=== PATIENT | male | born 1940 | race Caucasian/White ===

== ENCOUNTER 2019-09-01 00:07 | Inpatient (IN) | payer MEDICARE, SELFPAY ==
[2019-09-01] VITALS (8 sets, daily range): BP systolic 90–133; BP diastolic 49–73; PULSE 68–91; RESP 18–20; TEMP 36.4–37.4; O2SAT 95–100; BMI 21.2
--- NOTE | ~2019-09-01 | CT_ITS ---
EXAMINATION: CT abdomen pelvis wo con EXAM DATE: 09/01/2019 11:46 INDICATION: History of diverticulitis. Persistent rectal bleeding. Hematochezia. TECHNIQUE: Spiral CT of the abdomen and pelvis was performed without contrast. Axial, coronal and s agittal images were reviewed. The dose-length product (DLP) for this examination was 224.61 mGy-cm. The exposure was tailored according to patient size (auto mA exposure control), and iterative recons truction (ASIR) was used as additional dose reduction technique. Correlation is made to PET/CT 2016. FINDINGS: There is left adrenal hyperplasia. The spleen, right adrenal gland, pancreas are unremarkab le. There are cholecystectomy clips. Small left nephrolithiasis versus vascular calcification. Ther e is a left renal cyst measuring 4.8 cm. No hydronephrosis or ureteral stones. There is mild prostato megaly. The bladder is severely distended with large diverticulum at the dome measuring up to about 5 cm. There is no retroperitoneal or pelvic lymphadenopathy. There is extensive scattered arterial sclerotic disease. There is small left inguinal fat-containing hernia. The appendix is normal. The stomach and small bowel are unremarkable. There is moderate amount of c olonic stool. There is moderate sigmoid colonic diverticulosis. There is no adjacent inflammatory ch solo to suggest diverticulitis. No free intraperitoneal gas. Heart is normal in size. There is tra ce pericardial effusion. There is moderate emphysema. There are no osteoblastic or osteolytic lesio ns identified. IMPRESSION: 1. No acute intra-abdominal findings. 2. Moderate sigmoid diverticulosis. 3. Left adrenal hyperplasia. 4. Moderate emphysema. 5. Severely distended bladder with large diverticulum. 6. Small left inguinal hernia. 7. Mild prostatomegaly. Reviewed, dictated and finalized at location [facility]
--- NOTE | 2019-09-01 00:27 | ED.GIBLEED ---
HPI - GI Bleed General Chief complaint: GI Bleed Stated complaint: GI BLEED Time Seen by Provider: 09/01/19 00:25 Source: patient and RN notes reviewed Mode of arrival: ambulatory Limitations: no limitations History of Present Illness HPI Narrative: Pt is an 78 y/o male presenting to the ED c/o hematochezia. Pt reports he has had 4 episodes of bright red blood from his rectum since 2129 this evening. Pt notes he is currently taking Plavix but is unsure as to why. Pt denies ABD pain. Pt states he has had a Colonoscopy by Dr. Vergara previously. Pt denies SOB or fever. Onset (ago): hour(s) (3) Context: anticoagulant use (Taking Plavix) Associated symptoms: denies other symptoms Related Data Home Medications Medication Instructions Recorded Confirmed amlodipine 5 mg tablet 5 mg PO DAILY 06/05/19 atorvastatin 20 mg tablet 20 mg PO DAILY 06/05/19 clopidogrel 75 mg tablet 75 mg PO DAILY 06/05/19 cyanocobalamin (vitamin B-12) 10,000 mcg PO MONTHLY cap 06/05/19 5,000 mcg capsule doxazosin 8 mg tablet 8 mg PO DAILY 06/05/19 ferrous sulfate 325 mg (65 mg 325 mg PO BID 06/05/19 iron) tablet metformin 500 mg tablet 500 mg PO DAILY 06/05/19 pantoprazole 40 mg tablet,delayed 40 mg PO BID tablet 06/05/19 release blood sugar diagnostic #10 each 08/09/19 blood sugar diagnostic #10 each 08/09/19 cyanocobalamin (vitamin B-12) See Rx Instructions .ROUTE .COMPLEX 08/09/19 1,000 mcg/mL injection kit famotidine 20 mg tablet 20 mg PO BID tablet 08/09/19 lancets 30 gauge #25 each 08/09/19 Allergies Allergy/AdvReac Type Severity Reaction Status Date / Time losartan Allergy Unknown RASH Verified 09/01/19 00:13 Review of Systems Review of Systems: All systems reviewed & are unremarkable except as noted in HPI and below Constitutional: Constitutional: Denies fever(s) Respiratory: Respiratory: Denies dyspnea Gastrointestinal: Gastrointestinal: Denies abdominal pain and Reports hematochezia PMFSH Past Medical History Medical History B12 deficiency Carotid stenosis, right CKD (chronic kidney disease) stage 3, GFR 30-59 ml/min COPD (chronic obstructive pulmonary disease) BRIDGES (dyspnea on exertion) Essential hypertension GERD without esophagitis Hyperkalemia Hyperlipidemia Hypertension Malignant neoplasm of upper lobe of right lung Mixed hyperlipidemia NSTEMI (non-ST elevated myocardial infarction) Peripheral vascular disease 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 Tobacco abuse disorder Type 2 diabetes mellitus without complication, 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 Surgical History Surgical History H/O hernia repair Family History Family History Father Family history of heart disease in male family member before age 55, Onset Age: 76 Hypertension Cerebrovascular accident Mother Family history of diabetes mellitus in first degree relative Other Diabetes mellitus Social History Social History Smoking status: Current every day smoker Alcohol intake: never Gender identity (if verbalized by the patient): Male Exam Narrative: Exam Narrative: APPEARANCE: No acute distress, nontoxic, resting in bed EYES: EOMI HEENT: Normocephalic, atraumatic, OMM RESPIRATORY: No respiratory distress Clear to auscultation bilaterally with no rhonchi wheezing or rales. CARDIOVASCULAR: Regular rate and rhythm without murmurs rubs or gallops. ABDOMINAL: Soft, nontender, nondistended, no rebound or guarding Rectal: No hemorrhoids or fissures, bright red blood present that is Hemoccult positive MUSCULOSKELETAl: Moves all extremities. No clubbing, cyanosis or edema. NEURO: Awake and alert. Following commands, speech normal, no focal deficits SKIN:: Warm, dry. No rashes lesions or abrasions PSYCHIATRIC: Normal affect/moo
[2019-09-01 00:39] LABS: Basophils Absolute Auto 0.1 K/mm3 (0.0-0.1); Basophils Percent Auto 0.8 % (0.2-1.2); Eosinophils Absolute Auto 0.2 K/mm3 (0-0.3); Eosinophils Percent Auto 2.1 % (0-4.4); Hematocrit 45.2 % (42.0-52.0); Hemoglobin 14.8 g/dL (14.0-18.0); Immature Granulocyte Absolute 0.02 K/mm3 (0.00-0.031); Immature Granulocyte Percent A 0.3 % (0-0.5); Lymphocytes Absolute Auto 1.87 K/mm3 (0.9-3.2); Lymphocytes Percent Auto 24.4 % (18.3-44.2); Mean Corpuscular HGB Conc 32.7 g/dl (32-36); Mean Corpuscular Hemoglobin 32.4 pg (26-34); Mean Corpuscular Volume 98.9 fl (80-100); Mean Platelet Volume 10.4 fl (7.4-10.4); Monocytes Absolute Auto 0.8 K/mm3 (0.1-0.6); Monocytes Percent Auto 10.7 % (2.6-8.5); Neutrophils Absolute Auto 4.7 K/mm3 (1.3-6.7); Neutrophils Percent Auto 61.7 % (45.5-73.1); Platelet Count Result 165 k/mm3 (150-375); Red Blood Count 4.57 M/mm3 (4.6-6.20); Red Cell Distribution Width 13.2 % (11.5-14.5); White Blood Count 7.7 K/mm3 (4.5-10.0)
[2019-09-01] MEDS: LACTATED RINGERS 1,000 ML 999 ML IV CONT (00:44)
[2019-09-01 00:49] LABS: INR 0.9; Prothrombin Time 12.3 Seconds (11.1-14.7)
[2019-09-01 00:50] LABS: Alanine Aminotransferase 19 U/L (4-50); Albumin Level 4.2 g/dL (3.5-5.1); Alkaline Phosphatase 109 U/L (38-126); Aspartate Amino Transferase 26 U/L (17-59); Bilirubin,Total 0.4 mg/dL (0.2-1.3); Blood Urea Nitrogen 37 mg/dL (9-20); Calcium 8.7 mg/dL (8.4-10.2); Carbon Dioxide 23 mmol/L (22-30); Chloride 101 mmol/L (98-107); Estimated Glomerular Filt Rate 39; Glucose 139 mg/dL (75-110); Partial Thromboplastin Time 31.4 SECONDS (22.3-36.8); Sodium 137 mmol/L (137-145)
[2019-09-01 00:51] LABS: Lactic Acid Reflex 1.5 mmol/L (0.7-2.1)
--- NOTE | 2019-09-01 04:15 | ADMGEN ---
This patient, Isaias Pedro, was admitted to 3 [facility] Surg Room 317-01. Patient/family oriented to hospital policies and general routines including ID bracelet, bed and alarms, visiting hours, pain management, procedures, bathroom and other care routines, personal items, smoking policy, room service/diet, and visiting hours. Valuables list has been completed. Information on how to activate the Rapid Response Team has been discussed. Patient/Family are encouraged to report perceived risks to care and to ask questions if they do not understand what they are told or what they should do.
[2019-09-01] MEDS: LACTATED RINGERS 1,000 ML 100 ML IV CONT ×2 (04:41→16:07)
[2019-09-01 06:22] LABS: Hematocrit 39.1 % (42.0-52.0); Hemoglobin 13.2 g/dL (14.0-18.0)
--- NOTE | 2019-09-01 10:30 | PM.IMHP ---
H&P: HPI History of Present Illness Chief complaint: GI BLEED Narrative: Isaias Pedro is a 78 year old male who is on Plavix who presented emergency room for bright red blood coating the toilet starting at 9:00 p.m. last night. He said this was not associated with diarrhea or abdominal cramping. He said he had further episodes at 10:30 a.m., midnight and then decided to come in. He has had about 6 since he has been here but states his last bowel movement was much better and have less blood. He cannot tell me why he is on Plavix or who prescribed a for a but it sounds like he might of had a carotid endarterectomy in the past. Patient denies stomach pain, nausea, vomiting, lightheadedness, dizziness, chest pain, shortness of breath or dyspnea on exertion. He said his last colonoscopy was about 2-3 years ago and was reportedly clean. He has no history of diverticulitis or diverticulosis and does have a history of hemorrhoids that usually give him no problems. Has not had any flu-like symptoms in this last week. He says he is a diabetic but checks his blood sugar once every couple weeks and it is around 108. He takes metformin. He does not know his last A1c. He said he is scheduled to have a echo in the next 3 weeks by his tank house operator Dr. wu. Review of Systems Review of Systems: All systems reviewed & are unremarkable except as noted in HPI and below PMFSH Past Medical History Medical History (Updated 09/01/19 @ 10:43 by Yaz Flores PA-C) Abdominal bruit U/S 2010 showed no aneurysm B12 deficiency Carotid stenosis, right CKD (chronic kidney disease) stage 3, GFR 30-59 ml/min COPD (chronic obstructive pulmonary disease) BRIDGES (dyspnea on exertion) Essential hypertension GERD without esophagitis Hyperkalemia Hyperlipidemia Hypertension Malignant neoplasm of upper lobe of right lung Mixed hyperlipidemia NSTEMI (non-ST elevated myocardial infarction) Peripheral vascular disease 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 Tobacco abuse disorder Surgical History Surgical History (Updated 09/01/19 @ 10:45 by Yaz Flores PA-C) H/O hernia repair History of cataract surgery History of cholecystectomy History of colonoscopy History of renal stent History of surgical removal of squamous cell carcinoma of skin of left roman catholic Family History Family History Father Family history of heart disease in male family member before age 55, Onset Age: 76 Hypertension Cerebrovascular accident Mother Family history of diabetes mellitus in first degree relative Other Diabetes mellitus Social History Social History (Updated 09/01/19 @ 10:45 by Yaz Flores PA-C) Social History: Patient continues to smoke a pack per day. He does not do drugs or smoke marijuana. He does not drink alcohol. 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 Smoking packs per day: 1 Smoking cigarettes per day: 20.0 Years smoked: 65 Smoking pack-years: 65.00 Smoking status: Current every day smoker Tobacco type: cigarettes Alcohol intake: never Substance use: never Gender identity (if verbalized by the patient): Male Spiritual care concerns: No Agree to blood products: Yes Meds Home Medications and Allergies Home Medications Medication Instructions Recorded Confirmed Type amlodipine 5 mg tablet 5 mg PO DAILY 06/05/19 09/01/19 History atorvastatin 20 mg tablet 20 mg PO DAILY 06/05/19 09/01/19 History clopidogrel 75 mg tablet 75 mg PO DAILY 06/05/19 09/01/19 History doxazosin 8 mg tablet 8 mg PO DAILY 06/05/19 09/01/19 History metformin 500 mg tablet 500 mg PO DAILY 06/05/19 09/01/19 History albuterol sulfate 90 mcg/actuation 1 inhalation INHALATION Q4H PRN #8 06/07/19 09/01/19 Rx aerosol inhaler gm blood sugar diagnostic #10 each 08/09/19 09/01/19 History blood sugar diagnostic #10 each
[2019-09-01] MEDS: DOXAZOSIN MESYLATE 4 MG TABLET 8 MG PO (12:15)
[2019-09-01] MEDS: FAMOTIDINE 20 MG TABLET PO (12:17)
[2019-09-01] MEDS: ATORVASTATIN 20 MG TABLET PO (12:17)
--- NOTE | 2019-09-01 12:27 | WPDGICN ---
Assessment and Plan Additional Plan This is an 78-year-old white male patient I am asked to see for GI bleeding. Patient seen at the request of SOSA Flores. Patient followed by Dr. Vidal in the outpatient setting. Patient states he was in usual state of health until about 9:00 p.m. last evening. At that time he began to pass dark maroonish blood per rectum. He states that he had episodes of bleeding approximately every hour since that time. He denies any abdominal pain. He states he has passed only minimal amount of stool. Previously has had regular bowel movements. Perhaps only a mild tendency towards constipation. He denies any abdominal or rectal pain. Past medical history is significant for gastric ulcer 2 years ago. He has a history of colonoscopy 3 years ago. Patient has been treated for chronic kidney disease, COPD, GE reflux disease. History of right upper lobe lung malignancy. Atherosclerotic heart disease. he has had at the squamous cell carcinoma in the left shoulder. Previous surgery includes cholecystectomy. He has had a hernia repair. History of a renal stent. Skin carcinoma removal. And cataract surgery. Medications at home include Plavix. Amlodipine. Atorvastatin. B12. Doxazosin. Famotidine. Metformin. Metoprolol. He has an allergy to losartan. Family history is noncontributory Review of systems noncontributory. Physical exam reveals patient to be alert. Vital signs stable. HEENT exam unremarkable. He is anicteric. Lungs are clear to auscultation and percussion. Heart is without murmur or extra sounds. Abdominal exam bowel sounds are present soft nontender with no hepatosplenomegaly. Digital external rectal exam unremarkable. Laboratory findings reveal hemoglobin 13.2. Hematocrit 39.1 after overnight observation. These appear stable. Coagulation profile stable. Impression 1. Lower GI bleeding. Stable hemoglobin suggests this may represent rectal blood loss. 2. Atherosclerotic heart disease. He has a history of heart stent. Plavix will be held.. 3. COPD 4. ckd 6. dm Plan plan is for colonoscopy tomorrow after preparation today. Continue to monitor hemoglobin closely. Clear liquid diet in anticipation of colon preparation. GI Consult Note Consult date/time: 09/01/19 12:27 HPI: Isaias Pedro is a 78 year old male [facility] Past Medical History Medical History (Updated 09/01/19 @ 10:43 by Yaz Flores PA-C) Abdominal bruit U/S 2010 showed no aneurysm B12 deficiency Carotid stenosis, right CKD (chronic kidney disease) stage 3, GFR 30-59 ml/min COPD (chronic obstructive pulmonary disease) BRIDGES (dyspnea on exertion) Essential hypertension GERD without esophagitis Hyperkalemia Hyperlipidemia Hypertension Malignant neoplasm of upper lobe of right lung Mixed hyperlipidemia NSTEMI (non-ST elevated myocardial infarction) Peripheral vascular disease 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 Tobacco abuse disorder Surgical History Surgical History (Updated 09/01/19 @ 10:45 by Yaz Flores PA-C) H/O hernia repair History of cataract surgery History of cholecystectomy History of colonoscopy History of renal stent History of surgical removal of squamous cell carcinoma of skin of left voodoo Family History Family History Father Family history of heart disease in male family member before age 55, Onset Age: 76 Hypertension Cerebrovascular accident Mother Family history of diabetes mellitus in first degree relative Other Diabetes mellitus Social History Social History (Updated 09/01/19 @ 10:45 by Yaz Flores PA-C) Social History: Patient continues to smoke a pack per day. He does not do drugs or smoke marijuana. He does not drink alcohol. 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
[2019-09-01 13:29] LABS: Glucose Point of Care 107 (65-105)
[2019-09-01 13:31] LABS: Hematocrit 36.1 % (42.0-52.0)
[2019-09-01] MEDS: PEG (High)/E-LYTE SOLN 4,000 ML BTL 4000 ML PO (14:27)
[2019-09-01 17:09] LABS: Glucose Point of Care 77 (65-105)
[2019-09-01] MEDS: DEXTROSE 5%/LACTATED RINGERS 1,000 ML 100 ML IV CONT (17:44)
[2019-09-01 18:47] LABS: Hematocrit 36.9 % (42.0-52.0); Hemoglobin 12.3 g/dL (14.0-18.0)
[2019-09-01] MEDS: METOPROLOL TARTRATE 25 MG TABLET 75 MG PO (22:26)
--- NOTE | 2019-09-01 22:34 | PC.NURSE ---
Bowel Prep completed.
[2019-09-01 22:41] LABS: Glucose Point of Care 104 (65-105)
[2019-09-02] VITALS (7 sets, daily range): BP systolic 85–147; BP diastolic 49–64; PULSE 61–79; RESP 14–19; TEMP 36.6–37.3; O2SAT 93–100
[2019-09-02] MEDS: DEXTROSE 5%/LACTATED RINGERS 1,000 ML 100 ML IV CONT (03:37)
[2019-09-02 06:23] LABS: Hematocrit 34.1 % (42.0-52.0); Hemoglobin 11.5 g/dL (14.0-18.0)
--- NOTE | 2019-09-02 07:24 | WPDURCON ---
Assessment and Plan Assessment and plan (1) BPH loc w urin obs/LUTS: Code(s): N40.1 - Benign prostatic hyperplasia with lower urinary tract symptoms Status: Acute (2) Incomplete bladder emptying: Code(s): R33.9 - Retention of urine, unspecified Status: Acute Assessment and Plan: Incidental finding of incomplete bladder emptying in pt. with minimal voiding symptoms. Suspect this is a longstanding/ongoing problem. In absence of recurrent UTI, hematuria, jeannine urinary retention and worsening renal function surgical intervention not absolutely indicated. Will add Finasteride to Doxazosin 8mg. F/U with us 3-4 weeks. Urology Consult Note HPI Date Seen: 09/02/19 Requesting Physician: Yaz Flores PA-C Primary Care Provider: Mayur Vidal MD Consult Narrative Narrative: Isaias Pedro is a 78 year old male admitted with GI bleed. During evaluation CT-abd/pelvis revealed prostatic enlargement and incomplete bladder emptying. Pt. reports known history of BPH and has been on Doxazosin 8mg daily for years. He reports moderate slowing of stream and nocturia 3x/night. His voiding pattern is not troublesome to him and he denies history of recurrent UTI or hematuria. Review of Systems Cardiovascular: Cardiovascular: Denies chest pain, Denies lightheadedness, Denies palpitations and Denies dyspnea Respiratory: Respiratory: Denies dyspnea Gastrointestinal: Gastrointestinal: Denies diarrhea, Denies nausea and Denies vomiting Genitourinary: Genitourinary: Denies hematuria and Denies dysuria Endocrine: Endocrine: Denies palpitations [facility] Past Medical History Medical History (Updated 09/02/19 @ 07:29 by Felix Mcdermott MD) Abdominal bruit U/S 2010 showed no aneurysm B12 deficiency Carotid stenosis, right CKD (chronic kidney disease) stage 3, GFR 30-59 ml/min COPD (chronic obstructive pulmonary disease) BRIDGES (dyspnea on exertion) Essential hypertension GERD without esophagitis Hyperkalemia Hyperlipidemia Hypertension Malignant neoplasm of upper lobe of right lung Mixed hyperlipidemia NSTEMI (non-ST elevated myocardial infarction) Peripheral vascular disease 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 Tobacco abuse disorder Surgical History Surgical History (Updated 09/01/19 @ 10:45 by Yaz Flores PA-C) H/O hernia repair History of cataract surgery History of cholecystectomy History of colonoscopy History of renal stent History of surgical removal of squamous cell carcinoma of skin of left faith Family History Family History Father Family history of heart disease in male family member before age 55, Onset Age: 76 Hypertension Cerebrovascular accident Mother Family history of diabetes mellitus in first degree relative Other Diabetes mellitus Social History Social History (Updated 09/01/19 @ 10:45 by Yaz Flores PA-C) Social History: Patient continues to smoke a pack per day. He does not do drugs or smoke marijuana. He does not drink alcohol. 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 Smoking packs per day: 1 Smoking cigarettes per day: 20.0 Years smoked: 65 Smoking pack-years: 65.00 Smoking status: Current every day smoker Tobacco type: cigarettes Alcohol intake: never Substance use: never Gender identity (if verbalized by the patient): Male Spiritual care concerns: No Agree to blood products: Yes Meds Home Medications and Allergies Home Medications Medication Instructions Recorded Confirmed Type amlodipine 5 mg tablet 5 mg PO DAILY 06/05/19 09/01/19 History atorvastatin 20 mg tablet 20 mg PO DAILY 06/05/19 09/01/19 History clopidogrel 75 mg tablet 75 mg PO DAILY 06/05/19 09/01/19 History doxazosin 8 mg tablet 8 mg PO DAILY 06/05/19 09/01/19 History metformin 500 mg tablet 500 mg PO DAILY
[2019-09-02 07:52] LABS: Glucose Point of Care 111 (65-105)
--- NOTE | 2019-09-02 10:10 | PC.NURSE ---
To GI Lab per harshil.
[2019-09-02 10:20] LABS: Glucose Point of Care 88 (65-105)
[2019-09-02] MEDS: LACTATED RINGERS 1,000 ML 150 ML IV CONT (10:22)
--- NOTE | 2019-09-02 10:59 | WPDANESEPPF ---
Anes - Initial Pre Proc Eval Procedure: Operation Date: 09/02/19 11:30 Proposed Procedures p Colonoscopy - Jose Vergara MD Date/Time: 09/02/19 10:59 Surgeon: Yaz Flores PA-C Pre Op Diagnosis: GI BLEED Patient Data Age: 78 Gender: M Height: 5 ft 6 in Weight: 59.8 kg Last Vital Signs Temp 97.9 F 09/02/19 10:30 Pulse 64 09/02/19 10:30 Resp 16 09/02/19 10:30 BP 147/60 H 09/02/19 10:30 Pulse Ox 93 09/02/19 10:30 Allergies Allergy/AdvReac Type Severity Reaction Status Date / Time losartan Allergy Unknown RASH Verified 09/02/19 10:24 Home Medications Medication Instructions Recorded Confirmed Type amlodipine 5 mg tablet 5 mg PO DAILY 06/05/19 09/01/19 History atorvastatin 20 mg tablet 20 mg PO DAILY 06/05/19 09/01/19 History clopidogrel 75 mg tablet 75 mg PO DAILY 06/05/19 09/01/19 History doxazosin 8 mg tablet 8 mg PO DAILY 06/05/19 09/01/19 History metformin 500 mg tablet 500 mg PO DAILY 06/05/19 09/01/19 History albuterol sulfate 90 mcg/actuation 1 inhalation INHALATION Q4H PRN #8 06/07/19 09/01/19 Rx aerosol inhaler gm blood sugar diagnostic #10 each 08/09/19 09/01/19 History blood sugar diagnostic #10 each 08/09/19 09/01/19 History cyanocobalamin (vitamin B-12) 10,000 mcg IM MONTHLY 08/09/19 09/01/19 History 1,000 mcg/mL injection kit famotidine 20 mg tablet 20 mg PO PRN PRN tablet MDD 40mg 08/09/19 09/01/19 History lancets 30 gauge #25 each 08/09/19 09/01/19 History metoprolol tartrate 75 mg tablet 75 mg PO BID #60 tablet 08/09/19 09/01/19 Rx Laboratory Tests 09/01/19 09/01/19 09/01/19 13:24 13:26 16:52 Hgb 12.0 g/dL L g/dL (14.0-18.0) Hct 36.1 % L % (42.0-52.0) POC Capillary Glucose 107 mg/dl mg/dl 77 mg/dl mg/dl (65-105) (65-105) 09/01/19 09/01/19 09/02/19 18:20 22:33 06:01 Hgb 12.3 g/dL L g/dL 11.5 g/dL L g/dL (14.0-18.0) (14.0-18.0) Hct 36.9 % L % 34.1 % L % (42.0-52.0) (42.0-52.0) POC Capillary Glucose 104 mg/dl mg/dl (65-105) 09/02/19 09/02/19 07:48 10:17 Hgb Hct POC Capillary Glucose 111 mg/dl H mg/dl 88 mg/dl mg/dl (65-105) (65-105) Patient hx anesthesia problems: none Family hx anesthesia problems: none PMFSH Past Medical History Medical History (Updated 09/02/19 @ 07:29 by Felix Mcdermott MD) Abdominal bruit U/S 2010 showed no aneurysm B12 deficiency Carotid stenosis, right CKD (chronic kidney disease) stage 3, GFR 30-59 ml/min COPD (chronic obstructive pulmonary disease) BRIDGES (dyspnea on exertion) Essential hypertension GERD without esophagitis Hyperkalemia Hyperlipidemia Hypertension Malignant neoplasm of upper lobe of right lung Mixed hyperlipidemia NSTEMI (non-ST elevated myocardial infarction) Peripheral vascular disease 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 Tobacco abuse disorder Surgical History Surgical History (Updated 09/01/19 @ 10:45 by Yaz Flores PA-C) H/O hernia repair History of cataract surgery History of cholecystectomy History of colonoscopy History of renal stent History of surgical removal of squamous cell carcinoma of skin of left oriental orthodox Family History Family History Father Family history of heart disease in male family member before age 55, Onset Age: 76 Hypertension Cerebrovascular accident Mother Family history of diabetes mellitus in first degree relative Other Diabetes mellitus Social History Social History (Updated 09/01/19 @ 10:45 by Yaz Flores PA-C) Social History: Patient continues to smoke a pack per day. He does not do drugs or smoke marijuana. He does not drink alcohol. 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
--- NOTE | 2019-09-02 12:30 | PC.NURSE ---
Back from GI Lab via stretcher.
[2019-09-02] MEDS: FAMOTIDINE 20 MG TABLET PO (14:38)
[2019-09-02] MEDS: ATORVASTATIN 20 MG TABLET PO (14:38)
[2019-09-02] MEDS: METOPROLOL TARTRATE 25 MG TABLET 75 MG PO (14:38)
[2019-09-02] MEDS: FINASTERIDE 5 MG TABLET PO (14:38)
[2019-09-02] MEDS: DOXAZOSIN MESYLATE 4 MG TABLET 8 MG PO (14:38)
[2019-09-02 14:44] LABS: Hematocrit 36.2 % (42.0-52.0)
--- NOTE | 2019-09-02 15:24 | PM.DS ---
DS: Diagnosis Admitting Diagnosis Admitting Diagnosis: Hemorrhage of anus and rectum Discharge Diagnosis (1) BRBPR (bright red blood per rectum): Code(s): K62.5 - Hemorrhage of anus and rectum Status: Acute Assessment and Plan: -----likely due to hemorrhoids but cannot exclude polyp diverticular bleed. Colonoscopy did not show any evidence of the etiology of the bleed. Patient's colonoscopy in the past showed moderate size hemorrhoids and diverticulosis. The patient may be having bleeding from either of these entities and may be worsened since he is on Plavix. He has not had any blood per rectum the day of discharge. His hemoglobin is stable at 12.0. He is not having shortness of breath, dyspnea on exertion, chest pain or lightheadedness day of discharge. (2) GI bleed: Code(s): K92.2 - Gastrointestinal hemorrhage, unspecified Status: Acute Assessment and Plan: -----see above (3) T2DM (type 2 diabetes mellitus): Code(s): E11.9 - Type 2 diabetes mellitus without complications Status: Acute Assessment and Plan: -----patient takes metformin despite his abnormal chronic kidney disease. He does not seem to be acidotic. Last time he was discharged here in April he was told to talk to his primary about it which he says he did and they did not change anything. Continue with that outpt. (4) CKD (chronic kidney disease), stage III: Code(s): N18.3 - Chronic kidney disease, stage 3 (moderate) Status: Acute Assessment and Plan: -----at his baseline. (5) HLD (hyperlipidemia): Qualifiers: Hyperlipidemia type: mixed hyperlipidemia Qualified Code(s): E78.2 - Mixed hyperlipidemia Code(s): E78.5 - Hyperlipidemia, unspecified Status: Acute Assessment and Plan: -----continue statin therapy (6) Systolic murmur: Code(s): R01.1 - Cardiac murmur, unspecified Status: Acute Assessment and Plan: -----patient is getting an outpatient echo in the next 3 weeks according to him. He does have significant stenosis in the right carotid bulb which is known. He also had a abdominal bruit and looks like he had an ultrasound 2010 which did not show any aneurysm. (7) Incomplete bladder emptying: Code(s): R33.9 - Retention of urine, unspecified Status: Acute Assessment and Plan: -----seen by and started on finasteride. Pt had over 800cc in his bladder. Urology recommends outpt f/u. (8) BPH loc w urin obs/LUTS: Code(s): N40.1 - Benign prostatic hyperplasia with lower urinary tract symptoms Status: Acute Assessment and Plan: -----see above (9) Hemorrhoids: Code(s): K64.9 - Unspecified hemorrhoids Status: Acute (10) Colon polyps: Code(s): K63.5 - Polyp of colon Status: Acute DS: Summary Hospital Course Reason for hospitalization: Bright red blood per rectum Hospital Course: Patient is an 78-year-old male who presented emergency room after noticing multiple episodes of bright red blood per rectum without diarrhea or straining. The patient is on Plavix for arterial disease. Normal limits with exception of blood pressure 91/63. The time of admission his hemoglobin was normal 14.8. BMP showed chronic kidney disease that is stable. Findings with moderate sigmoid diverticulosis, left adrenal hyperplasia, moderate emphysema, severely distended bladder with large diverticulum, small left inguinal hernia, and mild prostatomegaly. Patient was admitted to the hospitalist service and observed. His hemoglobin did trend down to 11.5 but was stable at discharge. He underwent a colonoscopy which showed diverticulosis without evidence of bleed, polyps, and hemorrhoids. The bleeding was suspected to be from hemorrhoids although not entirely clear. Likely exacerbated by his Plavix. The patient had no known evidence of adrenal hyperplas
== END 2019-09-02 16:15 | disposition home or self-care (01) | DRG 393 ==
LOC: ANHED 00:38 → ANH3MEDSUR 03:14
PROVIDERS: Internal Medicine Gastroenterology; Physician Assistant; Admitting Provider Internal Medicine; Emergency Provider Emergency Medicine; PCP Emergency Medicine; Visit Provider Internal Medicine
PROC: 0DJD8ZZ Inspection of Lower Intestinal Tract, Via Natural or Artificial Opening Endoscopic (ICD-10-PCS; CPT 45378; principal; 2019-09-02 11:30)
DX: K64.8 Other hemorrhoids (principal); K57.31 Diverticulosis of large intestine without perforation or abscess with bleeding; E53.8 Deficiency of other specified B group vitamins; N18.3 Chronic kidney disease, stage 3 (moderate); I65.21 Occlusion and stenosis of right carotid artery; I10 Essential (primary) hypertension; D12.2 Benign neoplasm of ascending colon; D12.4 Benign neoplasm of descending colon; K21.9 Gastro-esophageal reflux disease without esophagitis; Z85.118 Personal history of other malignant neoplasm of bronchus and lung; N40.1 Benign prostatic hyperplasia with lower urinary tract symptoms; R33.9 Retention of urine, unspecified; I73.9 Peripheral vascular disease, unspecified; Z85.828 Personal history of other malignant neoplasm of skin; E78.2 Mixed hyperlipidemia; R01.1 Cardiac murmur, unspecified; Z90.49 Acquired absence of other specified parts of digestive tract; I25.10 Atherosclerotic heart disease of native coronary artery without angina pectoris; Z95.5 Presence of coronary angioplasty implant and graft; E11.22 Type 2 diabetes mellitus with diabetic chronic kidney disease; I12.9 Hypertensive chronic kidney disease with stage 1 through stage 4 chronic kidney disease, or unspecified chronic kidney disease; Z98.49 Cataract extraction status, unspecified eye; F17.210 Nicotine dependence, cigarettes, uncomplicated; T45.525A Adverse effect of antithrombotic drugs, initial encounter; E27.8 Other specified disorders of adrenal gland; J43.9 Emphysema, unspecified
CPT/HCPCS: 36415; 74176; 80053; 83605; 85014; 85018; 85025; 85610; 85730; 86850; 86900; 86901; 88305; 96360; 96361; 99285; A9270; G0378; J2704; J7120; J7121

== ENCOUNTER 2020-11-18 07:38 | Outpatient (CLI) | payer MEDICARE, SELFPAY ==
--- NOTE | ~2020-11-18 | CT_ITS ---
EXAMINATION: CTA brain carotid DATE: 11/18/2020 08:52 INDICATION: Bilateral carotid artery stenosis. TECHNIQUE: Computed tomographic angiography (CTA) of the head was performed without and with 100 mL O mnipaque-350 intravenous contrast. CTA of the neck was performed with intravenous contrast. Automated exposure control and iterative reconstruction technique were employed. The dose-length product was 1 033.32 mGy-cm. Maximum intensity projection and volume rendered 3D-reconstructions were created by huseyin sol technologist on a separate workstation. COMPARISON: Brain MRI 04/11/2019, CTA 04/11/2019 FINDINGS: HEAD CTA: There are scattered areas of low attenuation in the cerebral white matter. There is no intr acranial hemorrhage, acute infarction, or abnormal intracranial mass lesion. The ventricles are antwan l in size. There are likely changes of ocular lens replacement surgeries. There is mild mucosal thick ening in the paranasal sinuses. The mastoid air cells are normal. Left vertebral artery is dominant. There is no significant stenosis of basilar artery or the posterior cerebral arteries. The posterior communicating arteries are normal. There is no significant stenosis of the intracranial internal martinez tid arteries were anterior or middle cerebral arteries. Anterior communicating artery is normal. Ther e is no aneurysm. NECK CTA: There is moderate emphysema. There are no pathologically enlarged lymph nodes. There is mil d stenosis of right vertebral artery. Left vertebral artery arises from aortic arch. There is moderat e stenosis of proximal left subclavian artery. There is plaque in the proximal internal carotid arter ies. There is 49% stenosis of the proximal right internal carotid artery relative to normal distal ar alva lumen diameter (NASCET criteria). There is 0% stenosis of the proximal left internal carotid art rita relative to normal distal artery lumen diameter. There is severe cervical spondylosis. IMPRESSION: 1. Stable mild nonspecific cerebral white matter disease, which likely represents chronic small vesse l ischemic disease. 2. 49% stenosis of the proximal right internal carotid artery relative to normal distal artery lumen diameter (NASCET criteria). 3. 0% stenosis of the proximal left internal carotid artery relative to normal distal artery lumen di ameter. 4. Moderate stenosis of origin of left subclavian artery. Reviewed, dictated and finalized at location A. IMPRESSION: 1. Stable mild nonspecific cerebral white matter disease, which likely represen ts chronic small vessel ischemic disease. 2. 49% stenosis of the proximal right internal carotid artery relative to norm al distal artery lumen diameter (NASCET criteria). 3. 0% stenosis of the proximal left internal carotid artery relative to normal distal artery lumen diameter. 4. Moderate stenosis of origin of left subclavian artery.
[2020-11-18 08:53] LABS: Estimated Glomerular Filt Rate 32
== END 2020-11-18 07:39 | disposition home or self-care (01) ==
LOC: ANHIMG 07:39
PROVIDERS: PCP Emergency Medicine; Visit Provider Specialist
DX: I65.23 Occlusion and stenosis of bilateral carotid arteries (principal); R93.0 Abnormal findings on diagnostic imaging of skull and head, not elsewhere classified
CPT/HCPCS: 36415; 70496; 70498; 82565; Q9967

== ENCOUNTER 2021-04-09 03:06 | Day surgery (SDC) | payer MEDICARE, SELFPAY ==
[2021-04-08 13:55] VITALS: BMI 21.3
[2021-04-09] VITALS (15 sets, daily range): BP systolic 116–143; BP diastolic 49–93; PULSE 58–89; RESP 10–29; TEMP 35.9–36.1; O2SAT 90–98
[2021-04-09 08:27] LABS: Basophils Percent Auto 0.8 % (0.2-1.2); Eosinophils Absolute Auto 0.1 K/mm3 (0-0.3); Eosinophils Percent Auto 1.8 % (0-4.4); Hematocrit 43.6 % (42.0-52.0); Hemoglobin 14.4 g/dL (14.0-18.0); Immature Granulocyte Absolute 0.03 K/mm3 (0.00-0.031); Immature Granulocyte Percent A 0.6 % (0-0.5); Lymphocytes Absolute Auto 0.63 K/mm3 (0.9-3.2); Lymphocytes Percent Auto 12.6 % (18.3-44.2); Mean Corpuscular Hemoglobin 32.5 pg (26-34); Mean Corpuscular Volume 98.4 fl (80-100); Mean Platelet Volume 10.1 fl (7.4-10.4); Monocytes Absolute Auto 0.4 K/mm3 (0.1-0.6); Monocytes Percent Auto 7.8 % (2.6-8.5); Neutrophils Absolute Auto 3.8 K/mm3 (1.3-6.7); Neutrophils Percent Auto 76.4 % (45.5-73.1); Platelet Count Result 143 k/mm3 (150-375); Red Blood Count 4.43 M/mm3 (4.6-6.20); Red Cell Distribution Width 12.6 % (11.5-14.5)
[2021-04-09 08:38] LABS: Anion Gap 8 mmol/L (8-16); Blood Urea Nitrogen 26 mg/dL (9-20); Calcium 9.1 mg/dL (8.4-10.2); Carbon Dioxide 25 mmol/L (22-30); Chloride 103 mmol/L (98-107); Estimated CRCL calculation 25 ml/min; Estimated Glomerular Filt Rate 36; Glucose 111 mg/dL (65-110); Potassium 4.8 mmol/L (3.4-5.0); Sodium 136 mmol/L (137-145)
[2021-04-09 08:47] LABS: INR 0.9; Prothrombin Time 12.1 Seconds (11.1-14.7)
--- NOTE | 2021-04-09 09:24 | WPDMODSED ---
Moderate Sedation Note-Pt Data Patient Data Diagnosis: Abnormal nuclear stress test peripheral vascular disease anticipating carotid artery surgery smoking chronic kidney disease Present Complaint: no complaints Procedure to be performed/Plan: left heart catheterization Allergies Allergy/AdvReac Type Severity Reaction Status Date / Time losartan Allergy Unknown RASH Verified 06/08/20 09:45 Home Medications Medication Instructions Recorded Confirmed Type blood sugar diagnostic #10 each 08/09/19 09/02/20 History blood sugar diagnostic #10 each 08/09/19 09/02/20 History famotidine 20 mg tablet 20 mg PO PRN PRN tablet MDD 40mg 08/09/19 04/08/21 History lancets 30 gauge #25 each 08/09/19 09/02/20 History finasteride [Proscar] 5 mg PO QAM #30 tablet 09/02/19 04/08/21 Rx cyanocobalamin (vitamin B-12) 500 500 mcg PO DAILY 04/29/20 04/08/21 History mcg tablet atorvastatin 40 mg tablet 40 mg PO .COMPLEX #90 tablet 06/30/20 09/02/20 Rx metoprolol tartrate 25 mg tablet See Rx Instructions .ROUTE 08/03/20 04/08/21 Rx .COMPLEX #540 tablet clopidogrel 75 mg tablet See Rx Instructions .ROUTE 11/13/20 04/08/21 Rx .COMPLEX #90 tablet amlodipine 10 mg tablet See Rx Instructions .ROUTE 03/24/21 04/08/21 Rx .COMPLEX #90 tablet albuterol sulfate 90 mcg/actuation 1 - 2 inh INHALATION Q4-6H PRN #8 g 03/29/21 04/08/21 Rx aerosol inhaler doxazosin 8 mg tablet See Rx Instructions .ROUTE 03/29/21 04/08/21 Rx .COMPLEX #90 tablet Current Medications: Active Medications Sodium Chloride (Normal Saline Iv) 500 mls @ 100 mls/hr IV CONT .Q5H MEGAN Sedation/Anesthesia: No previous sedation/anesthesia problems (including family history). 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 He does not do drugs or smoke marijuana. He does not drink alcohol. 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 Smoking packs per day: 1 Smoking cigarettes per day: 20.0 Years smoked: 65 Smoking pack-years: 65.00 Smoking status: Current every day smoker Tobacco type: cigarettes Alcohol intake: never Substance use: never Gender identity (if verbalized by the patient): Male Spiritual care concerns: No Agree to blood products: Yes Mod Sed Physical Exam Physical Exam Pre Procedural Exam: Normal: Neck, Throat, Airway, Heart Size, Heart Rate, Heart Rhythm, Neuro Exam and Extremities ( peripheral pulses intact but diminished) and Variation: Appearance ( thin white male no apparent distress), Lungs ( breath sounds clear but diminished) and Extremities ( peripheral pulses i
--- NOTE | 2021-04-09 09:26 | PM.IMHP ---
H&P: HPI History of Present Illness Date/Time: 04/09/21 09:26 Chief Complaint: outpatient admission for left heart catheterization Narrative: this is an 80-year-old man who is not previously known to have overt coronary artery disease but is known to have significant peripheral vascular disease. He is referred to the office before this for preoperative cardiac risk assessment prior to carotid artery surgery. A nuclear stress test was done which shows a fixed lateral defect. He is not having any chest pain. In this setting a left heart catheterization has been recommended to assess his cardiac risk prior to surgery. He is again not reporting any exertional ischemic chest pain. Review of Systems Constitutional: Constitutional: Reports no additional constitutional complaints Eyes: Eyes: Reports no additional eye complaints ENT: Reports system reviewed and no additional complaints, except as documented Cardiovascular: Cardiovascular: Reports no additional cardiovascular complaints Respiratory: Respiratory: Reports dyspnea on exertion Gastrointestinal: Gastrointestinal: Reports no additional gastrointestinal complaints Musculoskeletal: Musculoskeletal: Reports arthralgias Integumentary/Breasts: Skin/Breast: Reports system reviewed and no additional complaints, except as docu Neurologic: Reports system reviewed and no additional complaints, except as documented [facility] Past Medical History Medical History Abdominal bruit U/S 2010 showed no aneurysm B12 deficiency Carotid stenosis, right CKD (chronic kidney disease) stage 3, GFR 30-59 ml/min COPD (chronic obstructive pulmonary disease) BRIDGES (dyspnea on exertion) Essential hypertension GERD without esophagitis Hyperkalemia Hyperlipidemia Hypertension Malignant neoplasm of upper lobe of right lung Mixed hyperlipidemia NSTEMI (non-ST elevated myocardial infarction) Peripheral vascular disease 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 He does not do drugs or smoke marijuana. He does not drink alcohol. 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 Smoking packs per day: 1 Smoking cigarettes per day: 20.0 Years smoked: 65 Smoking pack-years: 65.00 Smoking status: Current every day smoker Tobacco type: cigarettes Alcohol intake: never Substance use: never Gender identity (if verbalized by the patient): Male Spiritual care concerns: No Agree to blood products: Yes Meds Home Medications and Allergies Home Medications Medication Instructions Recorded Confirmed Type blood sugar diagnostic #10 each 08/09/19 09/02/20 History blood sugar diagnostic #10 each 08/09/19 09/02/20 History famotidine 20 mg tablet 20 mg PO PRN PRN tablet MDD 40mg 08/09/19 04/08/21 History lancets 30 gauge #25 each 08/09/19 09/02/20 History finasteride [Proscar] 5 mg PO QAM #30 tablet 09/02/19 04/08/21 Rx cyanocobalamin (vitamin B-12) 500 500 mcg PO DAILY 04/29/20 04/08/21 History mcg tablet atorvastatin 40 mg tablet 40 mg PO .COMPLEX #90 tablet 06/30/20 09/02/20 Rx metoprolol tartrate 25 mg table
--- NOTE | 2021-04-09 10:04 | WPDCARDPROC ---
Cardiac Cath Procedure Note Date of procedure:: 04/09/21 Performing physician:: Mayur Renee MD Indication:: abnormal nuclear stress test preop for noncardiac surgery Brief clinical history:: this is an 80-year-old man known to have peripheral vascular disease with carotid disease and renal artery intervention in the past. He is not previously known to have overt coronary disease. A nuclear stress test was abnormal suggesting a fixed lateral defect. He is not reporting any anginal symptoms. In this setting a preop angiogram has been recommended. Procedure Procedure performed:: Coronary angiography left ventriculography Sedation/Medication given:: fentanyl 50 mg Versed 2 mg case start time 9:26 a.m. case end time 9:57 a.m. sedation provided by Princess Reyes RN, trained observer Access site:: right femoral artery Estimated blood loss:: 15-20 cc Procedure note:: patient was brought to the cardiac catheterization lab in the postabsorptive state the right femoral triangle was prepared draped in the usual fashion. Anesthesia was infiltrated with 1% lidocaine. Femoral artery was punctured using the modified Seldinger technique a 5 British vascular sheath was placed. Femoral artery puncture was challenging as the patient has extensive iliofemoral disease. A Summer wire had to be used to advanced from the puncture site into the central aorta for vascular access. Following this I used a 5 British JR4 catheter to engage and inject the right coronary artery. This was changed over the a J-wire for a 5 British FL4 catheter. This would not satisfactorily engage the left coronary artery. I changed this over wire for a 5 British FL 3.5 catheter which engaged the left coronary artery for angiography. After this over the guidewire I advanced a 5 British angled pigtail catheter into the left ventricle were central hemodynamics were measured and a left ventriculogram injected in the ER AO projection. After this the case was terminated the patient was taken to the holding area for manual sheath removal. There were no per procedural complications and he left the labeling associate with no evidence of groin hematoma. Findings:: Hemodynamics: Central aortic pressure was 146 over 40 left ventricle 146/0 end-diastolic is 12 there is no systolic gradient on pullback across the aortic valve. Left ventricle: LV is normal in size all segments contract appropriately. The global ejection fraction is 60% by visual estimation. Before injection both the left and right coronary arteries are heavily calcified vessels. The left main coronary artery is medium in caliber there is high-grade ostial stenosis of 90% at the origin of the left main. There is he see 60-70% distal stenosis of the left main. The high-grade ostial lesion is associated with significant calcification of the aortic wall. The left anterior descending is a medium caliber artery extending down to around the apex there is a high-grade 90% stenosis in mid aspect of the LAD. The diagonal branches prior to this are relatively small. Circumflex is a moderate caliber artery giving rise to the marginal branches. In the midportion there is a 90-95% stenosis in the trunk of the circumflex. The right coronary artery is large caliber and dominant to the posterior wall. Despite being heavily calcified there are no stenotic lesions in the RCA. Conclusion:: 1. Right coronary dominant circulation with heavily calcified coronary arteries 2. critical coronary artery disease with high-grade 90-95% stenosis at the ostium of the left main, 60-70% distal left main stenosis, 90% stenosis in the midportion of the LAD and 90-95% stenosis in the midportion of the circumflex. 3. Preserved left ventricular systolic function 4. significant peripheral arterial disease making arterial access somewhat challenging as described above Mayur Renee MD [facility]
--- NOTE | 2021-04-09 13:25 | SUR.PHASEII ---
Patient report received from TABATHA Sánchez. Patient resting comfortably in bed with no complaints. Patient eating lunch and in no apparent distress. VSS. Denies pain. Groin site soft with no signs of bleeding or hematoma. Will continue to monitor.
--- NOTE | 2021-04-09 14:15 | SUR.PHASEII ---
Patient report provided to Kyleigh RN and Sagrario RN. Patient remains comfortable in no acute distress. VSS. Care of patient transitioned.
== END 2021-04-09 16:02 | disposition home or self-care (01) ==
PROVIDERS: PCP Emergency Medicine; Visit Provider Specialist
PROC: 4A023N7 Measurement of Cardiac Sampling and Pressure, Left Heart, Percutaneous Approach (ICD-10-PCS; CPT 93452; principal; 2021-04-09 08:30)
DX: Z01.810 Encounter for preprocedural cardiovascular examination (principal); I25.10 Atherosclerotic heart disease of native coronary artery without angina pectoris; R94.39 Abnormal result of other cardiovascular function study; I65.21 Occlusion and stenosis of right carotid artery; I73.9 Peripheral vascular disease, unspecified; I12.9 Hypertensive chronic kidney disease with stage 1 through stage 4 chronic kidney disease, or unspecified chronic kidney disease; N18.30 Chronic kidney disease, stage 3 unspecified; K21.9 Gastro-esophageal reflux disease without esophagitis; J44.9 Chronic obstructive pulmonary disease, unspecified; E53.8 Deficiency of other specified B group vitamins; E78.2 Mixed hyperlipidemia; I25.2 Old myocardial infarction; Z85.118 Personal history of other malignant neoplasm of bronchus and lung; F17.210 Nicotine dependence, cigarettes, uncomplicated; Z79.02 Long term (current) use of antithrombotics/antiplatelets; Z79.51 Long term (current) use of inhaled steroids
CPT/HCPCS: 36415; 80048; 85025; 85610; 93458; C1769; C1887; C1894; J0461; J1644; J2250; J3010; J7040

== ENCOUNTER 2021-04-23 03:55 | Inpatient (IN) | payer MEDICARE, SELFPAY ==
[2021-04-23] VITALS (27 sets, daily range): BP systolic 106–142; BP diastolic 40–99; PULSE 75–101; RESP 12–22; TEMP 36.4–36.9; O2SAT 92–100; BMI 20.1
--- NOTE | ~2021-04-23 | XR_ITS ---
EXAMINATION: XR chest 1V portable DATE: 04/23/2021 05:30 INDICATION: Shortness of breath TECHNIQUE: frontal view of the chest was obtained. COMPARISON: Chest radiograph dated 07/22/[address] dated 09/01/2019 FINDINGS: Hyperexpansion of lungs with flattening of the diaphragm consistent with emphysema better appreciated on prior CT. Diffuse increased interstitial pattern throughout both lungs with basilar predominance and with peripheral Ike B-lines consistent with mild pulmonary edema. No pleural effusion or pneum othorax. Additional streaky bibasilar atelectasis. The cardiomediastinal silhouette is normal. Surgic al clips in the epigastric region. IMPRESSION: 1. Diffuse increased interstitial pattern with Ike B-lines and favor pulmonary edema over pneumoni a. 2. Emphysema. Reviewed, dictated and finalized at location A. IMPRESSION: 1. Diffuse increased interstitial pattern with Ike B-lines and favor pulmona ry edema over pneumonia. 2. Emphysema.
--- NOTE | 2021-04-23 04:32 | PC.NURSE ---
Pt O2 titrated to 3L nasal cannula. O2 sat 97%.
[2021-04-23] MEDS: methylPREDNISolone SOD SUCC 125 MG VIAL IV PUSH (04:43)
--- NOTE | 2021-04-23 04:52 | ECG_ITS ---
Measurements Intervals [place] Rate: 101 P: 58 TN: 141 QRS: 65 QRSD: 94 T: -64 QT: 356 QTc: 463 Interpretive Statements SINUS TACHYCARDIA POSSIBLE LEFT ATRIAL ENLARGEMENT ST-T WAVE ABNORMALITY IN ANTEROLATERAL LEADS- CONSIDER ISCHEMIA BASELINE ARTIFACT- I, II, III, AVR, V5-V6 ABNORMAL ECG Electronically Signed On 04-23-2021 5:57:49 CDT by Maicol Jansen D.O.
[2021-04-23] MEDS: ALBUTEROL SULFATE (*SP) INHALER 2 PUFF INHALATION (05:04)
[2021-04-23 05:16] LABS: Alveolar/Arterial O2 Gradient 93.6 mmHg; Base Excess ABG -5.9 mEq/l (+/-2.0); Fractional Inspired Oxygen 32 %; HCO3 ABG 20.2 mEq/l (22.0-26.0); Oxygen Content ABG 17.4 %vol (16.0-22.0); Oxygen Saturation ABG 95.6 % (95.0-100.0); Oxyhemoglobin 92.5 % THb (90.0-100.0); PCO2 ABG 41.8 mmHg (35.0-45.0); PO2 ABG 85.7 mmHg (80.0-100.0); PO2 FiO2 Ratio Arterial Blood 2.68 %; Total Hemoglobin 13.3 g/dL (12.0-18.0); pH ABG 7.301 (7.350-7.450)
[2021-04-23 05:17] LABS: Device NASAL CANNULA; Site Drawn RIGHT BRACHIAL
--- NOTE | 2021-04-23 05:28 | ED.GENADULT ---
HPI - General Adult General Chief complaint: Shortness of Breath/Dyspnea Stated complaint: sob Time Seen by Provider: 04/23/21 04:46 History of Present Illness HPI narrative: Patient 80-year-old gentleman who presents the emergency department with complaint of shortness of breath. Patient reports that he started having wheezing this evening reports subtle bit of a cough and reports is not able to catch his breath. Patient was found to be hypoxic by EMS and was started on oxygen therapy and transported to the emergency department. Related Data Home Medications Medication Instructions Recorded Confirmed blood sugar diagnostic #10 each 08/09/19 09/02/20 blood sugar diagnostic #10 each 08/09/19 09/02/20 famotidine 20 mg tablet 20 mg PO PRN PRN tablet MDD 40mg 08/09/19 04/08/21 lancets 30 gauge #25 each 08/09/19 09/02/20 cyanocobalamin (vitamin B-12) 500 500 mcg PO DAILY 04/29/20 04/08/21 mcg tablet Allergies Allergy/AdvReac Type Severity Reaction Status Date / Time losartan Allergy Unknown RASH Verified 04/23/21 04:08 [facility] Past Medical History Medical History Abdominal bruit U/S 2010 showed no aneurysm B12 deficiency Carotid stenosis, right CKD (chronic kidney disease) stage 3, GFR 30-59 ml/min COPD (chronic obstructive pulmonary disease) BRIDGES (dyspnea on exertion) Essential hypertension GERD without esophagitis Hyperkalemia Hyperlipidemia Hypertension Malignant neoplasm of upper lobe of right lung Mixed hyperlipidemia NSTEMI (non-ST elevated myocardial infarction) Peripheral vascular disease 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 He does not do drugs or smoke marijuana. He does not drink alcohol. 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 Smoking packs per day: 1 Smoking cigarettes per day: 20.0 Years smoked: 65 Smoking pack-years: 65.00 Smoking status: Current every day smoker Tobacco type: cigarettes Alcohol intake: never Substance use: never Gender identity (if verbalized by the patient): Male Spiritual care concerns: No Agree to blood products: Yes Course Vital Signs Vital signs: Vital Signs Temperature 36.6 C 04/23/21 04:00 Pulse Rate 101 H 04/23/21 04:00 Respiratory Rate 22 H 04/23/21 04:00 Blood Pressure 142/99 H 04/23/21 04:00 Pulse Oximetry 99 04/23/21 04:00 Temperature 36.6 C 04/23/21 04:00 Pulse Rate 88 04/23/21 06:30 Respiratory Rate 15 04/23/21 06:30 Blood Pressure 136/67 04/23/21 06:30 Pulse Oximetry 94 04/23/21 06:30 Medical Decision Making Vital Signs Vital Signs: Vital Signs Temperature 36.6 C 04/23/21 04:00 Pulse Rate 101 H 04/23/21 04:00 Respiratory Rate 22 H 04/23/21 04:00 Blood Pressure 142/99 H 04/23/21 04:00 Pulse Oximetry 99 04/23/21 04:00 Temperature 36.6 C 04/23/21 04:00 Pulse Rate 88 04/23/21 06:30 Respiratory Rate 15 04/23/21 06:30 Blood Pressure 136/67 04/23/21 06:30 Pulse Oximetry 94 04/23/21 06:30 Lab Data Result diagrams: 04/23/21 05:31 04/23/21 05:31 Labs:
[2021-04-23 05:37] LABS: Basophils Percent Auto 0.5 % (0.2-1.2); Eosinophils Absolute Auto 0.1 K/mm3 (0-0.3); Eosinophils Percent Auto 1.3 % (0-4.4); Hematocrit 38.9 % (42.0-52.0); Hemoglobin 12.4 g/dL (14.0-18.0); Immature Granulocyte Absolute 0.04 K/mm3 (0.00-0.031); Immature Granulocyte Percent A 0.5 % (0-0.5); Lymphocytes Absolute Auto 0.82 K/mm3 (0.9-3.2); Lymphocytes Percent Auto 10.7 % (18.3-44.2); Mean Corpuscular HGB Conc 31.9 g/dl (32-36); Mean Corpuscular Hemoglobin 33.2 pg (26-34); Mean Corpuscular Volume 104.3 fl (80-100); Mean Platelet Volume 9.9 fl (7.4-10.4); Monocytes Absolute Auto 0.5 K/mm3 (0.1-0.6); Neutrophils Absolute Auto 6.2 K/mm3 (1.3-6.7); Platelet Count Result 140 k/mm3 (150-375); Red Blood Count 3.73 M/mm3 (4.6-6.20); Red Cell Distribution Width 13.2 % (11.5-14.5); White Blood Count 7.7 K/mm3 (4.5-10.0)
[2021-04-23 05:51] LABS: Alanine Aminotransferase 33 U/L (4-50); Albumin Level 3.9 g/dL (3.5-5.1); Alkaline Phosphatase 84 U/L (38-126); Anion Gap 9 mmol/L (8-16); Aspartate Amino Transferase 42 U/L (17-59); Bilirubin,Total 0.5 mg/dL (0.2-1.3); Blood Urea Nitrogen 40 mg/dL (9-20); Calcium 8.1 mg/dL (8.4-10.2); Carbon Dioxide 21 mmol/L (22-30); Chloride 110 mmol/L (98-107); Estimated CRCL calculation 24 ml/min; Estimated Glomerular Filt Rate 36; Glucose 158 mg/dL (65-110); Magnesium 2.5 mg/dL (1.6-2.3); Potassium 4.6 mmol/L (3.4-5.0); Sodium 140 mmol/L (137-145)
[2021-04-23 05:52] LABS: Anion Gap 9 mmol/L (8-16); Blood Urea Nitrogen 40 mg/dL (9-20); Calcium 8.1 mg/dL (8.4-10.2); Carbon Dioxide 22 mmol/L (22-30); Chloride 110 mmol/L (98-107); Estimated CRCL calculation 24 ml/min; Estimated Glomerular Filt Rate 36; Glucose 159 mg/dL (65-110); Lactic Acid Reflex 0.9 mmol/L (0.7-2.1); Potassium 4.5 mmol/L (3.4-5.0); Sodium 141 mmol/L (137-145)
[2021-04-23 06:04] LABS: Troponin I 0.178 ng/mL (0.000-0.034)
[2021-04-23] MEDS: ASPIRIN 81 MG CHEWABLE TABLET 324 MG PO (06:26)
[2021-04-23] MEDS: IPRATROPIUM BR 0.02% INH SOLN 0.5 MG/2.5 ML VIAL INHALATION ×3 (08:05→21:16)
[2021-04-23] MEDS: ALBUTEROL SULFATE NEB 2.5 MG/0.5 ML INH 5 MG INHALATION ×3 (08:05→21:15)
[2021-04-23 08:52] LABS: Troponin I 0.506 ng/mL (0.000-0.034)
--- NOTE | 2021-04-23 12:19 | PC.NURSE ---
This patient, Isaias Pedro, was admitted to IMU Room 231-01. Patient/family oriented to hospital policies and general routines including ID bracelet, bed and alarms, visiting hours, pain management, procedures, bathroom and other care routines, personal items, smoking policy, room service/diet, and visiting hours. Information on how to activate the Rapid Response Team has been discussed. Patient/Family are encouraged to report perceived risks to care and to ask questions if they do not understand what they are told or what they should do.
[2021-04-23] MEDS: methylPREDNISolone SOD SUCC 125 MG VIAL 60 MG IV PUSH ×2 (12:45→21:31)
[2021-04-23 14:14] LABS: NT Pro B Type Natriuretic Pept 8670 pg/mL (5-100)
--- NOTE | 2021-04-23 17:00 | PM.IMHP ---
H&P: HPI History of Present Illness Date/Time: 04/23/21 17:00 Chief Complaint: Shortness of breath. Narrative: This is a pleasant 80-year-old male smoker with coronary artery disease, peripheral vascular disease, chronic kidney disease, hypertension, and several comorbidities who presented to the emergency department earlier today via private vehicle from home for evaluation of shortness of breath. It sounds like the patient was awakened from sleep at about 3 AM with shortness of breath and tightness throughout the anterior chest. His shortness of breath was significant enough that he had to sit at the side of the bed in order to feel like he was able to breathe a bit better though he never really recovered and he asked his to bring him into the emergency department. His SPO2 was 70% on room air on arrival to triage and they were unable to get his sats up with nasal cannula and he was placed on a nonrebreather at that time. He has never officially been diagnosed with COPD or emphysema however he does have a rescue inhaler at home and tried that without much relief. A nebulizer and Solu-Medrol given the emergency department helped somewhat and he has been feeling much better as the day has gone on. He has not had any significant shortness of breath or chest tightness since arrival to the floor though he does have findings of pulmonary edema on chest x-ray and an elevated troponin. With further questioning the patient does mention having several episodes of chest tightness for the past couple of weeks, not necessarily with exertion however. Of note the patient recently had an abnormal stress test which was done in anticipation of carotid endarterectomy. A cardiac catheterization done on April [address] Renee showed critical coronary artery disease, mostly left-sided, and he has been following up with Dr. Vora for possible referral to assess candidacy for bypass. Review of Systems Review of Systems: 12 systems were reviewed with pertinent positives and negatives as per HPI. No fever, chills, or sweats. No recent cold or flu symptoms. He denies sick contacts. No lower extremity edema. He does not think he has had any weight gain. No dysphagia or concerns for aspiration. Except as document, all other systems were reviewed and are negative PMFSH Past Medical History Medical History (Updated 04/23/21 @ 21:55 by Carmen Tran PA-C) Carotid stenosis, right Chronic kidney disease, stage III (moderate) Chronic obstructive pulmonary disease Essential hypertension GERD without esophagitis Hyperlipidemia Hypertension Malignant neoplasm of upper lobe of right lung Status post chemoradiation. 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 Tobacco abuse disorder Vitamin B12 deficiency Surgical History Surgical History (Updated 04/23/21 @ 21:48 by Carmen Tran PA-C) History of bilateral cataract extraction History of cataract surgery History of cholecystectomy History of colonoscopy History of inguinal hernia repair History of left-sided carotid endarterectomy History of renal stent History of surgical removal of squamous cell carcinoma of skin of left sikhism Family History Family History Father Family history of heart disease in male family member before age 55, Onset Age: 76 Hypertension Cerebrovascular accident Mother Family history of diabetes mellitus in first degree relative Other Diabetes mellitus Social History Social History (Updated 04/23/21 @ 21:50 by Carmen Tran PA-C) Social History: The patient is and lives with his in [place], [place]. He has 1 son. 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 He has smoked a pack of cigarettes a day for at least the last 65 years but he is trying to cut back a bit. No alcohol or illicit sub
[2021-04-23] MEDS: METOPROLOL TARTRATE 25 MG TABLET 75 MG PO (22:41)
[2021-04-23] MEDS: FUROSEMIDE INJ 40 MG/4 ML VIAL 20 MG IV PUSH (22:41)
[2021-04-23] MEDS: ATORVASTATIN 40 MG TABLET PO (22:41)
[2021-04-24] VITALS (25 sets, daily range): BP systolic 94–122; BP diastolic 47–65; PULSE 66–101; RESP 12–22; TEMP 35.7–36.6; O2SAT 92–99
[2021-04-24] MEDS: IPRATROPIUM BR 0.02% INH SOLN 0.5 MG/2.5 ML VIAL INHALATION ×4 (02:29→20:57)
[2021-04-24] MEDS: ALBUTEROL SULFATE NEB 2.5 MG/0.5 ML INH 5 MG INHALATION ×4 (02:29→20:57)
[2021-04-24 05:24] LABS: Anion Gap 7 mmol/L (8-16); Blood Urea Nitrogen 48 mg/dL (9-20); Calcium 8.3 mg/dL (8.4-10.2); Carbon Dioxide 21 mmol/L (22-30); Chloride 106 mmol/L (98-107); Estimated CRCL calculation 26 ml/min; Estimated Glomerular Filt Rate 39; Glucose 160 mg/dL (65-110); Magnesium 2.3 mg/dL (1.6-2.3); Potassium 4.2 mmol/L (3.4-5.0); Sodium 134 mmol/L (137-145)
[2021-04-24] MEDS: predniSONE 20 MG TABLET 40 MG PO (09:37)
[2021-04-24] MEDS: DOXAZOSIN MESYLATE 4 MG TABLET 8 MG PO (09:37)
[2021-04-24] MEDS: FINASTERIDE 5 MG TABLET PO (09:38)
[2021-04-24] MEDS: CLOPIDOGREL BISULFATE 75 MG TABLET PO (09:38)
[2021-04-24] MEDS: CYANOCOBALAMIN 500 MCG TABLET PO (09:38)
[2021-04-24] MEDS: METOPROLOL TARTRATE 25 MG TABLET 75 MG PO ×2 (09:38→20:24)
--- NOTE | 2021-04-24 10:47 | PM.IMPN ---
Progress Note: A&P Assessment and Plan (1) Acute respiratory failure with hypoxia: Code(s): J96.01 - Acute respiratory failure with hypoxia Status: Acute Assessment and Plan: Continue with steroids, bronchodilators, oxygen (2) Elevated troponin: Code(s): R77.8 - Other specified abnormalities of plasma proteins Status: Acute Assessment and Plan: C/w NSTEMI D/w Dr. Renee Anticoagulate due to critical L main lesion, NSTEMI Transfer to [facility] for evaluation of carotids, coronaries (3) Chronic obstructive pulmonary disease: Code(s): J44.9 - Chronic obstructive pulmonary disease, unspecified Status: Acute Assessment and Plan: As above Smoking cessation (4) Chronic kidney disease, stage III (moderate): Code(s): N18.30 - Chronic kidney disease, stage 3 unspecified Status: Acute Assessment and Plan: Near baseline (5) Tobacco abuse disorder: Code(s): Z72.0 - Tobacco use Status: Acute (6) Coronary artery disease: Code(s): I25.10 - Atherosclerotic heart disease of [place] coronary artery without angina pectoris Status: Acute Assessment and Plan: Recent cardiac catheterization showed critical coronary artery disease Subjective Date/time seen: 04/24/21 10:47 Interval history: 04/24 visit: Severe BRIDGES with ambulating to BR. Intermittent chest pressure with any exertion. Review of Systems Review of Systems: All systems reviewed & are unremarkable except as noted in HPI and below Exam Narrative: HEENT: PERRL, sclerae nonicteric, pharyngeal mucosa pink and intact NECK: No JVD, adenopathy, or thyromegaly CHEST: Tachypneic with diffuse insp and exp wheezes and prolonged exp phase HEART: NL S1/S2, regular, no murmur ABDOMEN: BS+, soft, nontender, no mass, no bruits EXTREMITIES: No cyanosis, edema, or clubbing NEUROLOGIC: CN intact and symmetric to inspection. MUSCULOSKELETAL: Tone and strength symmetric. PSYCH: Alert. Oriented to person, place, and time. Objective Data Vital Signs Vital Signs: Vital Signs - 24 hr 04/23/21 12:30 04/23/21 12:56 04/23/21 14:00 Temperature 97.8 F Pulse Rate 90 91 86 Respiratory Rate 20 Blood Pressure 127/40 L Pulse Oximetry 96 96 04/23/21 14:22 04/23/21 14:23 04/23/21 14:32 Temperature Pulse Rate 84 89 Respiratory Rate 16 16 Blood Pressure Pulse Oximetry 92 04/23/21 16:00 04/23/21 16:35 04/23/21 18:00 Temperature 98.4 F Pulse Rate 93 92 75 Respiratory Rate 20 Blood Pressure 137/60 Pulse Oximetry 97 97 04/23/21 20:00 04/23/21 21:16 04/23/21 21:23 Temperature 97.6 F Pulse Rate 82 80 84 Respiratory Rate 18 12 12 Blood Pressure 106/63 Pulse Oximetry 99 95 04/23/21 22:00 04/23/21 22:41 04/24/21 00:00 Temperature 97.4 F L Pulse Rate 88 95 73 Respiratory Rate 18 Blood Pressure 115/53 L Pulse Oximetry 99 04/24/21 02:00 04/24/21 02:30 04/24/21 02:36 Temperature Pulse Rate 66 76 77 Respiratory Rate 12 12 Blood Pressure Pulse Oximetry 04/24/21 04:00 04/24/21 06:00 04/24/21 07:07 Temperature 97.8 F 97.2 F L Pulse Rate 75 66 66 Respiratory Rate 16 16 Blood Pressure 101/65 96/55 L Pulse Oximetry 97 96 04/24/21 07:51 04/24/21 07:54 04/24/21 07:59 Temperature Pulse Rate 78 75 Respiratory Rate 14 14 Blood Pressure Pulse Oximetry 92 04/24/21 08:00 04/24/21 09:38 Temperature Pulse Rate 75 101 H Respiratory Rate Blood Pressure Pulse Oximetry 92 Intake/Output Intake/Output: Intake & Output 04/21/21 04/22/21 04/23/21 04/24/21 23:59 23:59 23:59 23:59 Intake Total 360 60 Output Total 1000 750 [id number] -[id number] Meds/Results Medications: Active Medications Generic Name Dose Route Start Last Admin Trade Name Omid PRN Reason Stop Dose Admin Albuterol 5 mg 04/23/21 08:00 04/24/21 07:51 Albuterol Sulfate Neb 2.5 Mg/0.5 M
[2021-04-24] MEDS: HEPARIN SODIUM 5,000 UNITS/ML VIAL 5000 UNITS IV PUSH (11:18)
[2021-04-24 12:06] LABS: Hematocrit 36.3 % (42.0-52.0); Hemoglobin 11.8 g/dL (14.0-18.0); Immature Granulocyte Percent A 0.8 % (0-0.5); Lymphocytes Absolute Auto 0.42 K/mm3 (0.9-3.2); Lymphocytes Percent Auto 3.5 % (18.3-44.2); Mean Corpuscular HGB Conc 32.5 g/dl (32-36); Mean Corpuscular Hemoglobin 33.4 pg (26-34); Mean Corpuscular Volume 102.8 fl (80-100); Mean Platelet Volume 10.8 fl (7.4-10.4); Monocytes Absolute Auto 0.4 K/mm3 (0.1-0.6); Monocytes Percent Auto 3.5 % (2.6-8.5); Neutrophils Absolute Auto 11.2 K/mm3 (1.3-6.7); Neutrophils Percent Auto 92.2 % (45.5-73.1); Platelet Count Result 140 k/mm3 (150-375); Red Blood Count 3.53 M/mm3 (4.6-6.20); Red Cell Distribution Width 13.2 % (11.5-14.5); White Blood Count 12.1 K/mm3 (4.5-10.0)
[2021-04-24 13:41] LABS: INR 1.1; Prothrombin Time 13.7 Seconds (11.1-14.7)
[2021-04-24 13:43] LABS: Partial Thromboplastin Time 97.3 SECONDS (22.3-36.8)
[2021-04-24] MEDS: HEPARIN SOD/D5W 100 UNITS/ML 25,000 UNITS/250 ML BAG 11 UNITS IV CONT (14:15)
--- NOTE | 2021-04-24 14:42 | PM.TDS ---
Transfer Discharge Sum: Prov Provider Date of admission: 04/23/21 07:24 Primary care physician: Mayur Vidal MD Admitting clinician: Rima Melton MD Consults: 04/23/21 Consult to Physician Routine Comment: Consulting Provider: Mayur Renee Reason for consultation: elevated troponin, SOB Has provider been notified: Yes DS: Admitting Diagnosis Discharge Date April 24, 2021 Admitting Diagnosis COPD exacerbation, non ST-elevation myocardial infarction DS: Discharge Diagnosis Discharge Diagnosis (1) Acute respiratory failure with hypoxia: Code(s): J96.01 - Acute respiratory failure with hypoxia Status: Acute Assessment and Plan: Continue with steroids, bronchodilators, oxygen (2) Elevated troponin: Code(s): R77.8 - Other specified abnormalities of plasma proteins Status: Acute Assessment and Plan: C/w NSTEMI D/w Dr. Renee Anticoagulate due to critical L main lesion, NSTEMI Transfer to [facility] for evaluation of carotids, coronaries (3) Chronic obstructive pulmonary disease: Code(s): J44.9 - Chronic obstructive pulmonary disease, unspecified Status: Acute Assessment and Plan: As above Smoking cessation (4) Chronic kidney disease, stage III (moderate): Code(s): N18.30 - Chronic kidney disease, stage 3 unspecified Status: Acute Assessment and Plan: Near baseline (5) Tobacco abuse disorder: Code(s): Z72.0 - Tobacco use Status: Acute (6) Coronary artery disease: Code(s): I25.10 - Atherosclerotic heart disease of [place] coronary artery without angina pectoris Status: Acute Assessment and Plan: Recent cardiac catheterization showed critical coronary artery disease Transfer Discharge Sum: Med Medications Active and Home Medications: Home Medications famotidine 20 mg tablet 20 mg PO DAILY PRN tablet MDD 40mg 08/09/19 [History Confirmed 04/23/21] finasteride [Proscar] 5 mg PO QAM #30 tablet 09/02/19 [Rx Confirmed 04/23/21] cyanocobalamin (vitamin B-12) 500 mcg tablet 500 mcg PO DAILY 04/29/20 [History Confirmed 04/23/21] albuterol sulfate 90 mcg/actuation aerosol inhaler 1 - 2 inh INHALATION Q4-6H PRN #8 g 03/29/21 [Rx Confirmed 04/23/21] amlodipine 10 mg PO DAILY 04/23/21 [History Confirmed 04/23/21] atorvastatin 40 mg PO HS 04/23/21 [History Confirmed 04/23/21] clopidogrel 75 mg PO DAILY 04/23/21 [History Confirmed 04/23/21] doxazosin 8 mg PO DAILY 04/23/21 [History Confirmed 04/23/21] metoprolol tartrate 75 mg PO BID 04/23/21 [History Confirmed 04/23/21] Active Medications Albuterol (Albuterol Sulfate Neb 2.5 Mg/0.5 Ml Inh) 5 mg INHALATION Q6HRT [facility] Last Admin: 04/24/21 14:22 Dose: 5 mg Documented by: Amlodipine Besylate (Amlodipine Besylate 5 Mg Tablet) 10 mg PO DAILY [facility] Last Admin: 04/24/21 09:37 Dose: Not Given Documented by: Atorvastatin Calcium (Atorvastatin 40 Mg Tablet) 40 mg PO HS [facility] Last Admin: 04/23/21 22:41 Dose: 40 mg Documented by: Clopidogrel Bisulfate (Clopidogrel Bisulfate 75 Mg Tablet) 75 mg PO DAILY [facility] Last Admin: 04/24/21 09:38 Dose: 75 mg Documented by: Cyanocobalamin (Cyanocobalamin 500 Mcg Tablet) 500 mcg PO DAILY [facility] Last Admin: 04/24/21 09:38 Dose: 500 mcg Documented by: Doxazosin Mesylate (Doxazosin Mesylate 4 Mg Tablet) 8 mg PO DAILY [facility] Last Admin: 04/24/21 09:37 Dose: 8 mg Documented by: Famotidine (Famotidine 20 Mg Tablet) 20 mg PO DAILY PRN PRN Reason: Acid Reflux Finasteride (Finasteride 5 Mg Tablet) 5 mg PO QAM [facility] Last Admin: 04/24/21 09:38 Dose: 5 mg Documented by: Heparin Sodium (Porcine) (Heparin Sodium 5,000 Units/Ml Vial) 5,000 units IV PUSH PRN PRN PRN Reason: aPTT less than 55 seconds Heparin Sodium (Porcine) (Heparin Sodium 5,000 Units/Ml Vial) 2,500 units IV PUSH PRN PRN PRN Reason: aPTT 55 - 70 seconds Heparin Sodium/Dextrose (Heparin Sodium/D5w 100 Units/Ml)
--- NOTE | 2021-04-24 19:51 | PC.NURSE ---
Report called to Gema MAYS at [facility].
[2021-04-24 20:00] LABS: Partial Thromboplastin Time 106.3 SECONDS (22.3-36.8)
[2021-04-24] MEDS: ATORVASTATIN 40 MG TABLET PO (20:24)
== END 2021-04-24 21:05 | disposition short-term general hospital (02) | DRG 280 ==
LOC: ANHED 06:42 → ANHIMU 12:53
PROVIDERS: Physician Assistant; Specialist; Admitting Provider Internal Medicine; Emergency Provider Emergency Medicine; PCP Emergency Medicine; Visit Provider Internal Medicine
DX: I21.4 Non-ST elevation (NSTEMI) myocardial infarction (principal); J96.01 Acute respiratory failure with hypoxia; J44.1 Chronic obstructive pulmonary disease with (acute) exacerbation; I25.10 Atherosclerotic heart disease of native coronary artery without angina pectoris; R77.8 Other specified abnormalities of plasma proteins; I12.9 Hypertensive chronic kidney disease with stage 1 through stage 4 chronic kidney disease, or unspecified chronic kidney disease; N18.30 Chronic kidney disease, stage 3 unspecified; F17.210 Nicotine dependence, cigarettes, uncomplicated; E78.2 Mixed hyperlipidemia; K21.9 Gastro-esophageal reflux disease without esophagitis; I73.9 Peripheral vascular disease, unspecified; Z79.899 Other long term (current) drug therapy; Z98.42 Cataract extraction status, left eye; Z98.41 Cataract extraction status, right eye; Z85.118 Personal history of other malignant neoplasm of bronchus and lung
CPT/HCPCS: 36415; 36600; 71045; 80048; 80053; 82607; 82805; 83605; 83735; 83880; 84484; 85025; 85610; 85730; 93005; 94640; 96374; 99285; A9270; J1644; J1940; J2930; J7512